=== PATIENT | male | born 1975 | race Hispanic/Latino ===

== ENCOUNTER → 2025-08-17 | Day surgery (SDC) | payer OTHER ==
[~2025-08-17] MED LIST: BENEFIBER1 EAC1; BENICAR20 MG PO; CHLORTHALIDONE25 MG PO; DESCOVY 200-251 EACH PO; DICYCLOMINE HCL20 MG PO; GLIPIZIDE5 MG PO; LIDOCAINE HCL 2% LOCAL INJ 5 ML SDV VIAL INJ ONE; LIPITOR20 MG PO; MAGNESIUM100 MG; METFORMIN HCL500 MG PO; MIDAZOLAM HCL 2 MG/2 ML VIAL ONE; PEPCID20 MG PO; PROBIOTIC & AC1 EACH PO; PROPOFOL IV EMULSION 10 MG/ML 20 ML VIAL ONE
[2025-08-17 14:20] VITALS: TEMP 98.6
[2025-08-17 14:50] VITALS: BP 111/77; PULSE 57; RESP 16; O2SAT 98
== END | disposition home or self-care (01) ==
LOC: OR 10:13
PROVIDERS: ATTEND Internal Medicine Gastroenterology
DX: K29.70 Gastritis, unspecified, without bleeding (principal); K31.7 Polyp of stomach and duodenum; K20.90 Esophagitis, unspecified without bleeding; K31.89 Other diseases of stomach and duodenum; K44.9 Diaphragmatic hernia without obstruction or gangrene; K21.9 Gastro-esophageal reflux disease without esophagitis; K58.9 Irritable bowel syndrome, unspecified; I10 Essential (primary) hypertension; E11.9 Type 2 diabetes mellitus without complications; E78.5 Hyperlipidemia, unspecified; Z79.84 Long term (current) use of oral hypoglycemic drugs; Z79.899 Other long term (current) drug therapy
CPT/HCPCS: 36415; 43239; 82948; 93005; J2003; J2250; J2704